=== PATIENT | male | born 1975 | race Caucasian/White ===

== ENCOUNTER 2017-09-20 10:04 | Emergency (ER) | payer BC ==
[2017-09-20] MEDS ORDERED: ASPIRIN 325 MG TABLET PO ONE (10:14)
[2017-09-20] MEDS ORDERED: HEPARIN SODIUM 1000 UNIT/1 ML 10ML VIAL IVP ONE (10:20)
[2017-09-20 10:21] LABS: BASO % 0.4 % (0-6); EOS % 1.1 % (0-6); GRAN % 72.8 % (47-80); HEMATOCRIT 52.2 % (42.0-52.0); LYMPH % 16.9 % (16-45); MEAN CELL VOLUME 86.6 fl (81-97); MEAN CORPUSCULAR HGB CONC 34.5 g/dl (32-36); MEAN PLATELET VOLUME 10.4 fl (7.4-10.4); MONO % 8.8 % (0-9); PLATELET COUNT 301 K/uL (130-400); RED BLOOD COUNT 6.03 M/uL (4.40-5.70); RED CELL DISTRIBUTION WIDTH 12.7 % (11.5-14.5); WHITE BLOOD COUNT W/O DIFF 12.2 K/uL (4.2-12.2)
[2017-09-20 10:22] LABS: MEAN CORPUSCULAR HEMOGLOBIN 29.8 pg (27-33)
--- NOTE | 2017-09-20 10:28 | Emergency Department Record ---
History of Present Illness - General Chief Complaint: Chest Pain Stated Complaint: CHEST PAIN Time Seen by Provider: 09/20/17 10:13 Source: Patient Mode of Arrival: Ambulatory Limitations: No limitations - History of Present Illness Initial Comments: The patient is here due to chest pressure for the last 13 hours. He has had mild SOB with it and sweating off and on. He has no hx of any cardiac issues and does have a hx of heavy tobacco use and DM2. The patient states he is not using his DM medicines due to insurance. MD Complaint: Chest pain Onset/Timin -: Hour(s) Onset: During rest Pain Location: Substernal Pain Radiation: None Consistency: Constant Improves With: Nothing Worsens With: Inspiration Treatments Prior to Arrival: None - Related Data Allergies Allergy/AdvReac Type Severity Reaction Status Date / Time Penicillins Allergy ANAPHYLAXIS Verified 09/20/17 10:09 Travel Screening - Travel/Exposure Within Last 30 Days Have you traveled within the last 30 days?: No - Travel/Exposure Within Last Year Have you traveled outside the [place] in the last year?: No - Additonal Travel Details Have you been exposed to anyone with a communicable illness?: No - Travel Symptoms Symptom Screening: None Review of Systems Constitutional: Denies: Chills, Fever Eyes: Denies: Eye discharge ENT: Denies: Congestion, Dental pain Respiratory: Denies: Cough, Dyspnea Cardiovascular: Reports: Chest pain, Dyspnea on exertion. Denies: Arrhythmia Past Medical History - SOCIAL HISTORY Smoking Status: Heavy tobacco smoker (>10/day) - RESPIRATORY Hx Respiratory Disorders: Yes Hx Bronchitis: Yes - CARDIOVASCULAR Hx Cardio Disorders: No - NEURO Hx Neuro Disorders: No - GI Hx GI Disorders: No - Hx Genitourinary Disorders: No - ENDOCRINE Hx Endocrine Disorders: Yes Hx Diabetes: Yes - MUSCULOSKELETAL Hx Musculoskeletal Disorders: Yes - PSYCH Hx Psych Problems: No - HEMATOLOGY/ONCOLOGY Hx Hematology/Oncology Disorders: No Family Medical History Any Significant Family History?: Yes Hx Cancer: Father Hx Dementia: Father Hx Diabetes: Mother, Brother/Sister, Grandparents Hx Heart Disease: Father, Brother/Sister Hx HTN: Father, Brother/Sister Hx Kidney Disease: Father Hx Stroke: Father Physical Exam - General General Appearance: Alert, Oriented x3, Cooperative, No acute distress - Head Head exam: Atraumatic, Normocephalic, Normal inspection - Eye Eye exam: Normal appearance, PERRL, EOMI - ENT Throat exam: Normal inspection. negative: Tonsillar erythema, Tonsillar exudate - Neck Neck exam: Normal inspection, Full ROM. negative: Tenderness - Respiratory Respiratory exam: Normal lung sounds bilaterally. negative: Respiratory distress - Cardiovascular Cardiovascular Exam: Regular rate, Normal rhythm, Normal heart sounds - GI/Abdominal GI/Abdominal exam: Soft, Normal bowel sounds. negative: Tenderness - Extremities Extremities exam: Normal inspection, Full ROM, Normal capillary refill. negative: Tenderness - Neurological Neurological exam: Alert. negative: Motor sensory deficit Course Vital Signs 09/20/17 10:10 Pulse Rate 89 Respiratory 18 Rate Blood Pressure 121/93 Pulse Ox 96 - Reevaluation(s) Reevaluation #1: Due to the fact the patient appears to be having an acute inferior [place] I did discuss the case with the [facility] Piercing Artist Dr. Barroso. He does accept the case to [facility] and the patient will go directly to the woods laborer. I also did discuss the case with Dr. Tatum in the ER and he also is aware of the patient coming to [facility]. 09/20/17 10:22 Reevaluation #2: The patient is doing very well at this time. He did have a hypotensive episode with the blood draw that did respond to fluid. We have treated him with an ASA and a Heparin bolus. Due to the episode of hypotension and the fact the patient has had pain for 13 hours I am reluctant to give him a betablocker during transport. 09/20/17 10:32 Reevaluation #3: The patient is doing much better at this time. His pressure has resolved and he is feeling much better. 09/20/17 10:35 Medical Decision Making - Data Complexity MDM Data: EKG Ordered and/or Reviewed - Lab Data Result diagrams: 09/20/17 10:10 09/20/17 10:10 - EKG Data -: EKG Interpreted by Wy EKG: ST Elevation [place] (STEMI) (Inferior wall.) Disposition Disposition: Transfer Clinical Impression: Acute inferior myocardial infarction Disposition: Acute Care Hospital Transfer Transfer To: [facility] Reason For Transfer: Acute [place] Accepting Physician: Dharmesh Time Discussed w/Accepting Physician: 10:28 Condition: (2) Stable Instructions: Chest Pain (ED) Forms: Patient Portal Access Time of Disposition: 10:28 Quality - Quality Measures Quality Measures: N/A - Blood Pressure Screening View Details: Yes Does Patient Have Any of the Following: No Blood Pressure Classification: Hypertensive Reading Systolic Measurement: 121 Diastolic Measurement: 93 Screening for High Blood Pressure: < Pre-Hypertensive BP, F/U Documented > [ [id number]] Pre-Hypertensive Follow-up Interventions: Referral to alternative/primary care provider.
[2017-09-20 10:32] LABS: BLOOD UREA NITROGEN 11 mg/dL (6-20); CREATININE 0.9 mg/dL (0.7-1.2); EST GLOMERULAR FILTRATION RATE > 60 mL/min
[2017-09-20 10:33] LABS: INR 0.94; PARTIAL THROMBOPLASTIN TIME 28.1 SECONDS (24.5-39.1); PROTHROMBIN TIME (PATIENT) 10.1 SECONDS (9.5-12.1)
[2017-09-20 10:35] LABS: GLUCOSE,RANDOM 356 mg/dL (74-109)
[2017-09-20 10:58] LABS: CKMB 141.1 ng/mL (<6.73)
[2017-09-20 11:44] LABS: CREATINE PHOSPHOKINASE 1909 U/L (39-308)
--- NOTE | 2017-09-20 12:35 | RADIOLOGY REPORT ---
EXAM: AP CHEST HISTORY: ACUTE GENERALIZED CHEST PAIN. TECHNIQUE: AP view of the chest was obtained. Comparison: None. FINDINGS: The lungs are clear. The cardiac silhouette, diaphragm, and osseous structures are unremarkable for age. IMPRESSION: NEGATIVE CHEST EXAMINATION. JOB NUMBER: [id number] MTDD
== END 2017-09-20 10:30 | disposition short-term general hospital (02) ==
LOC: ER 10:04
DX: I21.19 ST elevation (STEMI) myocardial infarction involving other coronary artery of inferior wall (principal); R06.02 Shortness of breath; E11.9 Type 2 diabetes mellitus without complications; F17.210 Nicotine dependence, cigarettes, uncomplicated
CPT/HCPCS: 71010; 80048; 82550; 82553; 84484; 85025; 85610; 85730; 93005; 93010; 96374; 99285

== ENCOUNTER 2019-05-20 16:53 | Emergency (ER) | payer OTHER ==
--- NOTE | 2019-05-20 17:04 | Emergency Department Record ---
History of Present Illness - General Chief complaint: Weakness Stated complaint: LOSS OF LT SIDE MOBILITY Time Seen by Provider: 05/20/19 16:58 Source: Patient, Family Mode of Arrival: Ambulatory Limitations: No limitations - History of Present Illness Initial comments: 43 yo male presents with weakness and pain to the left upper arm since 4am. He was awake and in bed when the symptoms started fairly abruptly. He states he felt some odd sensations and an ache in the arm. The function of the arm has been "half to 25%" since then. This has never happened before. He denies chest pain. He has had two heart attacks. There is a strong history of CAD and strokes in the family. No vision changes, no speech changes, no facial expression changes, no shortness of breath, no leg weakness. Dr Santos is his PCP. MD Complaint: Focal weakness -: Hour(s) (13) Location: LUE Severity: Moderate Quality: Aching Consistency: Constant, Other (Not improving) Improves with: None Worsens with: Movement Associated Symptoms: Denies other symptoms - [place] Coma Scale Eye Response: (4) Open spontaneously Motor Response: (6) Obeys commands Verbal Response: (5) Oriented [place] Total: 15 - Related Data Allergies Allergy/AdvReac Type Severity Reaction Status Date / Time Penicillins Allergy ANAPHYLAXIS Verified 05/20/19 16:56 Review of Systems Constitutional: Denies: Chills, Fever, Malaise, Weakness Eyes: Denies: Eye discharge ENT: Denies: Congestion, Throat pain Respiratory: Denies: Cough, Dyspnea, Hemoptysis, Wheezes Cardiovascular: Denies: Chest pain, Edema, Palpitations, Syncope Endocrine: Denies: Fatigue, Polydipsia, Polyuria Gastrointestinal: Denies: Abdominal pain, Diarrhea, Nausea, Vomiting Genitourinary: Denies: Dysuria, Frequency, Hematuria Musculoskeletal: Reports: Myalgia. Denies: Arthralgia, Back pain, Gout, Joint swelling, Neck pain Skin: Denies: Bruising, Change in color, Rash Neurological: Reports: Weakness. Denies: Abnormal gait, Headache, Numbness, Tingling, Tremors, Vertigo Psychiatric: Denies: Anxiety Hematological/Lymphatic: Denies: Blood Clots, Easy bleeding, Easy bruising Past Medical History - SOCIAL HISTORY Smoking Status: Heavy tobacco smoker (>10/day) - RESPIRATORY Hx Respiratory Disorders: Yes Hx Bronchitis: Yes - CARDIOVASCULAR Hx Cardio Disorders: No - NEURO Hx Neuro Disorders: No - GI Hx GI Disorders: No - Hx Genitourinary Disorders: No - ENDOCRINE Hx Endocrine Disorders: Yes Hx Diabetes: Yes - MUSCULOSKELETAL Hx Musculoskeletal Disorders: Yes - PSYCH Hx Psych Problems: No - HEMATOLOGY/ONCOLOGY Hx Hematology/Oncology Disorders: No Family Medical History Hx Cancer: Father Hx Dementia: Father Hx Diabetes: Mother, Brother/Sister, Grandparents Hx Heart Disease: Father, Brother/Sister Hx HTN: Father, Brother/Sister Hx Kidney Disease: Father Hx Stroke: Father Physical Exam - General General Appearance: Alert, Oriented x3, Cooperative, No acute distress Limitations: No limitations - Head Head exam: Atraumatic, Normal inspection - Eye Eye exam: Normal appearance, PERRL. negative: Conjunctival injection, Scleral icterus - ENT ENT exam: Normal exam, Mucous membranes moist Ear exam: Normal external inspection Nasal Exam: Normal inspection Mouth exam: Normal external inspection - Neck Neck exam: Normal inspection, Full ROM. negative: Tenderness - Respiratory Respiratory exam: Normal lung sounds bilaterally. negative: Respiratory distress, Rhonchi, Stridor, Wheezes - Cardiovascular Cardiovascular Exam: Normal rhythm, Normal heart sounds, Tachycardia Peripheral Pulses: 2+: Radial (R), Radial (L) - GI/Abdominal GI/Abdominal exam: Soft. negative: Tenderness - Rectal Rectal exam: Deferred - exam: Deferred - Extremities Extremities exam: Normal inspection, Normal capillary refill, Tenderness. negative: Full ROM - Back Back exam: Denies: CVA tenderness (R), CVA tenderness (L) - Neurological Neurological exam: Alert, CN II-XII intact, Normal gait, Oriented X3, Reflexes normal, Other (Mild PND on the left vs the right. disability counselor just slightly less than the right, I am able to break the biceps strength). negative: Abnormal gait, Altered - Psychiatric Psychiatric exam: Normal affect, Normal mood - Skin Skin exam: Dry, Intact, Normal color, Warm Stroke Assessment - NIH Stroke Scale 1a. Level of Consciousness: (0) Alert 1b. LOC Questions: (0) Answers Correctly 1c. LOC Commands: (0) Performs Tasks Correctly 2. Best Gaze: (0) Normal 3. Visual: (0) No Visual Loss 4. Facial Palsy: (0) Normal Symmetrical Movement 5a. Motor Arm Left: (1) Drift 5b. Motor Arm Right: (0) No Drift 6a. Motor Leg Left: (0) No Drift 6b. Motor Leg Right: (0) No Drift 7. Limb Ataxia: (0) Absent 8. Sensory: (0) Normal 9. Best Language: (0) No Aphasia 10. Dysarthria: (0) Normal 11. Extinction/Inattention: (0) No Abnormality NIH Stoke Scale Total: 1 Course - Reevaluation(s) Reevaluation #1: 13 hours since onset Mixed examination picture with pain and weakness No swelling Normal radial pulse 05/20/19 17:07 05/20/19 17:24 EKG #1: 16:54 Rate: 97 Rhythm: sinus [place]: normal Intervals: normal ST segments: inferior Q waves likely old, no acute ST changes Prior: 05/20/19 17:[address] due to a trauma patient on CT table 05/20/19 18:22 I recommend transfer for further evaluation of the left upper extremity weakness. His care has been through [facility] in the past. He agrees with transfer at this time. He does insist on going by private car. I informed him he would have to sign out AMA if he should choose to drive himself. 05/20/19 18:29 I discussed the case with Dr Springer at [facility]. He accepts the patient for transfer. I discussed with the patient he will have to sign out AMA if he drives himself. He understands and agrees. He understands I can not guarantee his safety by going private car. 05/20/19 18:55 Bed was assigned. He still insists on transfer by private car and will sign out AMA taking on the responsibility of safe transfer between facilities. Medical Decision Making - Lab Data Result diagrams: 05/20/19 17:05 05/20/19 17:05 Disposition Disposition: Transfer Clinical Impression: Left arm weakness Disposition: Against Medical Advice Transfer To: [facility] Reason For Transfer: Left arm weakness Accepting Physician: Gian Time Discussed w/Accepting Physician: 18:31 Condition: (2) Stable Forms: Patient Portal Access Time of Disposition: 18:24 Quality - Quality Measures Quality Measures: N/A - Blood Pressure Screening Does Patient Have Any of the Following: Active Dx of HTN Blood Pressure Classification: Hypertensive Reading Systolic Measurement: 137 Diastolic Measurement: 103 Screening for High Blood Pressure: Patient Exclusion, Hx of HTN [[id number]]
[2019-05-20 17:14] LABS: ABSOLUTE NEUTROPHIL COUNT 4.34; BASO % 0.8 % (0-6); EOS % 5.2 % (0-6); GRAN % 57.4 % (47-80); HEMOGLOBIN 16.2 gm/dl (14.0-18.0); MEAN CELL VOLUME 88.2 fl (81-97); MEAN CORPUSCULAR HEMOGLOBIN 29.8 pg (27-33); MEAN CORPUSCULAR HGB CONC 33.8 g/dl (32-36); MEAN PLATELET VOLUME 10.2 fl (7.4-10.4); MONO % 11.6 % (0-9); PLATELET COUNT 258 K/uL (130-400); RED BLOOD COUNT 5.44 M/uL (4.40-5.70); RED CELL DISTRIBUTION WIDTH 12.8 % (11.5-14.5); WHITE BLOOD COUNT W/O DIFF 7.6 K/uL (4.2-12.2)
[2019-05-20 17:28] LABS: INR 0.9; PARTIAL THROMBOPLASTIN TIME 27.2 SECONDS (24.5-39.1); PROTHROMBIN TIME (PATIENT) 9.4 SECONDS (9.5-12.1)
[2019-05-20 17:29] LABS: BLOOD UREA NITROGEN 11 mg/dL (6-20); CREATININE 0.9 mg/dL (0.7-1.2); EST GLOMERULAR FILTRATION RATE > 60 mL/min
[2019-05-20 17:30] LABS: TOTAL PROTEIN 7.1 g/dL (6.6-8.7)
[2019-05-20 17:32] LABS: GLUCOSE,RANDOM 405 mg/dL (74-109)
[2019-05-20 17:34] LABS: ALB/GLOB RATIO 1.4 (1.1-1.8); ALBUMIN 4.1 g/dL (4.0-5.0); ALT/SGPT 53 U/L (<41); AST/SGOT 24 U/L (10.0-50.0)
[2019-05-20 17:35] LABS: ALKALINE PHOSPHATASE 67 U/L (40-129)
[2019-05-20] MEDS ORDERED: ASPIRIN 81 MG CHEWABLE TABLET PO ONE (18:24)
--- NOTE | 2019-05-21 13:41 | CT SCAN REPORT ---
EXAM: EMERGENCY HEAD CT WITHOUT CONTRAST HISTORY: LEFT ARM PAIN AND WEAKNESS STARTING SUDDENLY YESTERDAY. TECHNIQUE: Axial CT scan of the head was performed without IV contrast. Comparison: None. FINDINGS: No definite acute intracranial hemorrhage identified. No focal mass effect or midline shift evident. Minor asymmetry in the size of the lateral ventricles, the left is slightly larger than the right probably just developmental with no mass on the right or atrophic process on the left identified. No definite acute infarct or intracranial mass lesion seen. Moderate membrane thickening inferiorly in the left maxillary antrum. No depressed calvarial fracture evident. Opacification of a few mastoid air cells inferiorly on the right. IMPRESSION: 1. NO DEFINITE ACUTE INTRACRANIAL HEMORRHAGE OR MIDLINE SHIFT EVIDENT. 2. OPACIFICATION OF A FEW MASTOID AIR CELLS INFERIORLY ON THE RIGHT. 3. THE ETIOLOGY OF THE PATIENT'S NEUROLOGIC SYMPTOMS NOT EVIDENT ON THIS STUDY. IF SYMPTOMS PERSIST, A FOLLOW-UP BRAIN MRI WOULD BE SUGGESTED FOR FURTHER EVALUATION IF NOT CONTRAINDICATED. JOB NUMBER: [id number] MTDD
== END 2019-05-20 19:06 | disposition left against medical advice (07) ==
LOC: ER 16:53
DX: R53.1 Weakness (principal); M79.622 Pain in left upper arm; E11.9 Type 2 diabetes mellitus without complications; I10 Essential (primary) hypertension; I25.2 Old myocardial infarction; F17.210 Nicotine dependence, cigarettes, uncomplicated
CPT/HCPCS: 70450; 80053; 84484; 85025; 85610; 85730; 93005; 93010; 99285